=== PATIENT | male | born 1970 | race Caucasian/White ===

== ENCOUNTER 2020-09-30 14:58 | Outpatient (CLI) | payer BC | END 2020-09-30 15:32 | disposition home or self-care (01) | LOC: SLEEP 14:58 | PROVIDERS: ATTEND Otolaryngology Otolaryngology/Facial Plastic Surgery | DX: G47.33 Obstructive sleep apnea (adult) (pediatric) (principal) | CPT/HCPCS: G0399 ==

== ENCOUNTER → 2021-09-03 | Outpatient (CLI) | payer BC ==
[2021-09-03 12:31] LABS: ALBUMIN 3.7 GM/DL (3.2-4.5); BILIRUBIN,TOTAL 0.7 MG/DL (0.1-1.0); CALCIUM 8.1 MG/DL (8.5-10.1); CREATININE SERUM 1.13 MG/DL (0.60-1.30); POTASSIUM 3.7 MMOL/L (3.6-5.0); TOTAL PROTEIN 5.8 GM/DL (6.4-8.2)
== END ==
LOC: LABNPT 12:10
DX: Z01.89 Encounter for other specified special examinations (principal)
CPT/HCPCS: 80053